=== PATIENT | male | born 1930 | race Caucasian/White ===

== ENCOUNTER 2017-04-26 13:50 | Emergency (ER) | payer OTHER ==
[~2017-04-26] VITALS: Ht 185.4 cm; Wt 80.7 kg
[~2017-04-26 13:50] MED LIST: ATI1 PO; BACO TOP; CEFUROXIME AXE500 MG PO; DEMECLOCYCLINE300 MG PO; ENALAPRIL MALEA10 MG PO; FOL1 PO; HIBICLENS118 ML TOP; LAC PO; NORVASC10 MG PO; THI100 PO
[2017-04-26 17:12] VITALS: BP 114/60
== END 2017-04-26 17:12 | disposition home or self-care (01) ==
LOC: ED 13:50
DX: F10.129 Alcohol abuse with intoxication, unspecified (principal); R40.4 Transient alteration of awareness; I11.0 Hypertensive heart disease with heart failure; Z85.46 Personal history of malignant neoplasm of prostate; Z79.899 Other long term (current) drug therapy; Z79.891 Long term (current) use of opiate analgesic